=== PATIENT | male | born 1935 | race Caucasian/White ===

== ENCOUNTER 2023-07-09 10:23 | Inpatient (IN) | payer MEDICARE ==
[2023-07-09 11:20] LABS: #Monocytes 0.5 thou/uL (0.11-0.59); #Neutrophils 5.1 thou/uL (1.40-6.50); %Basophils 0.3 % (0.0-1.0); %Eosinophils 0.2 % (0.0-10.0); %Lymphocytes 9.8 % (21.0-51.0); %Monocytes 7.5 % (0.0-10.0); Hematocrit 42.4 % (42.0-52.0); Hemoglobin 14.5 g/dL (14.0-18.0); Mean Corpuscular HGB CONC 34.2 g/dL (32.0-36.0); Mean Corpuscular Hemoglobin 31.5 pg (27.0-31.0); Mean Platelet Volume 9.4 fL (7.4-10.4); Platelet Count 121 10x3/uL (130-400); RBC Distribution Width 12.8 % (11.5-14.5); Red Blood Cell (RBC) Count 4.61 mill/uL (4.70-6.10); White Blood Cell (WBC) Count 6.2 10x3/uL (4.8-10.8)
[2023-07-09 11:48] LABS: ALT (SGPT) 11 U/L (8-55); AST (SGOT) 23 U/L (5-34); Albumin 3.4 g/dL (3.4-4.8); Alkaline Phosphatase 40 U/L (40-110); Anion Gap 9 mmol/L (10-20); BUN (Urea Nitrogen) 17 mg/dL (8.4-25.7); Bilirubin, Total 1.5 mg/dL (0.2-1.2); Calc. Creatinine Clearance 0 mL/min (70-130); Calcium 8.3 mg/dL (7.8-10.44); Carbon Dioxide 21 mmol/L (23-31); Chloride 101 mmol/L (98-107); Estimated GFR 68; Globulin 2.8 g/dL (2.4-3.5); Glucose 103 mg/dL (83-110); Lipase 10 U/L (8-78); Potassium 3.8 mmol/L (3.5-5.1); Protein, Total 6.2 g/dL (5.8-8.1); Sodium 127 mmol/L (136-145)
[2023-07-09 11:50] LABS: Troponin I 0.024 ng/mL (< 0.028)
[2023-07-09 11:55] LABS: CellaVision Operator ID LAB.GE; Platelet Adequacy Comment Platelets Decreased; Polychromasia SLIGHT = 2-3 cells HPF (0-2)
[2023-07-09 12:30] LABS: Bacteria/HPF None Seen HPF (None Seen); Bilirubin Negative (Negative); Blood, Urine Negative (Negative); CAUTI Indications for Culture < 2yrs of age; Clarity Clear (Clear); Glucose, Urine (Dipstick) Normal (Negative); Ketone, Urine 20 mg/dL (Negative); Leukocyte Negative Leu/uL (Negative); Nitrite Negative (Negative); Protein, Urine (Dipstick) Negative (Neg-Trace); RBC/HPF 0-3 HPF (0-3); Specific Gravity, Urine 1.014 (1.002-1.036); Squamous Epithelial None Seen HPF (0-3); Urobilinogen Normal mg/dL (Less than 2); WBC/HPF 0-3 HPF (0-3); pH, Urine 5.5 (5.0-9.0)
[2023-07-09 12:35] LABS: Urine Culture Reflex Yes Yes
[2023-07-09 13:00] LABS: SARS-CoV-2 NAA Rapid Test Not Detected (NotDetected)
[2023-07-09] MEDS ORDERED: Ondansetron PF 4 MG/2 ML Vial IVP PRN (15:00)
[2023-07-09] MEDS ORDERED: Acetaminophen 325 MG TAB PO PRN (15:00)
[2023-07-09] MEDS ORDERED: Enoxaparin 40 MG (0.4 mL) SYRINGE SC SCH (15:15)
[2023-07-09 15:24] VITALS: BMI 17.6
[2023-07-09] MEDS ORDERED: Enoxaparin 40 MG (0.4 mL) SYRINGE ONE (15:36)
[2023-07-09 16:23] LABS: Free T4 (Free Thyroxine) 1.05 ng/dL (0.70-1.48); Thyroid Stimulating Hormone 2.0942 uIU/mL (0.35-4.94)
[2023-07-10 05:30] LABS: Anion Gap 14 mmol/L (10-20); BUN (Urea Nitrogen) 17 mg/dL (8.4-25.7); Calc. Creatinine Clearance 48 mL/min (70-130); Calcium 8.1 mg/dL (7.8-10.44); Carbon Dioxide 17 mmol/L (23-31); Chloride 104 mmol/L (98-107); Estimated GFR 81; Glucose 69 mg/dL (83-110); Potassium 3.8 mmol/L (3.5-5.1); Sodium 131 mmol/L (136-145)
[2023-07-10 09:04] LABS: Magnesium 1.8 mg/dL (1.6-2.6); Phosphorus 2.9 mg/dL (2.3-4.7)
[2023-07-10] MEDS: Sodium Bicarbonate Tab 325 MG TAB PO SCH ×3 (09:32→20:21)
[2023-07-10] MEDS: Enoxaparin 40 MG (0.4 mL) SYRINGE SC SCH (09:32)
[2023-07-10] MEDS: Midodrine HCl 5 MG TAB PO SCH ×3 (09:32→20:21)
[2023-07-10] MEDS: Sodium Chloride 0.9% 1,000 ML IV SCH ×2 (09:33→18:12)
[2023-07-10 17:24] LABS: Anion Gap 13 mmol/L (10-20); BUN (Urea Nitrogen) 16 mg/dL (8.4-25.7); Calc. Creatinine Clearance 55 mL/min (70-130); Calcium 7.9 mg/dL (7.8-10.44); Carbon Dioxide 17 mmol/L (23-31); Chloride 103 mmol/L (98-107); Estimated GFR 86; Glucose 84 mg/dL (83-110); Potassium 3.6 mmol/L (3.5-5.1); Sodium 129 mmol/L (136-145)
[2023-07-10] MEDS ORDERED: Sodium Chloride 1 GM TAB PO SCH (21:30)
[2023-07-11 07:28] LABS: Anion Gap 12 mmol/L (10-20); BUN (Urea Nitrogen) 11 mg/dL (8.4-25.7); Calc. Creatinine Clearance 60 mL/min (70-130); Calcium 7.9 mg/dL (7.8-10.44); Carbon Dioxide 20 mmol/L (23-31); Chloride 105 mmol/L (98-107); Estimated GFR 88; Glucose 92 mg/dL (83-110); Potassium 3.5 mmol/L (3.5-5.1); Sodium 133 mmol/L (136-145)
[2023-07-11] MEDS ORDERED: Cosyntropin 250 MCG VIAL SLOW IVP SCH (08:15)
[2023-07-11] MEDS ORDERED: Potassium Chloride 20 MEQ TAB PO SCH (08:15)
[2023-07-11 09:02] LABS: Magnesium 1.7 mg/dL (1.6-2.6)
[2023-07-11] MEDS: Sodium Bicarbonate Tab 325 MG TAB PO SCH ×3 (09:27→19:48)
[2023-07-11] MEDS: Midodrine HCl 5 MG TAB PO SCH ×3 (09:27→19:48)
[2023-07-11] MEDS: Enoxaparin 40 MG (0.4 mL) SYRINGE SC SCH (09:27)
[2023-07-11] MEDS: Sodium Chloride 1 GM TAB PO SCH ×3 (09:28→19:48)
[2023-07-11] MEDS ORDERED: Dexamethasone 4 mg/ml Vial SLOW IVP SCH (14:45)
[2023-07-12 05:09] LABS: #Monocytes 0.2 thou/uL (0.11-0.59); #Neutrophils 3.9 thou/uL (1.40-6.50); %Basophils 0.2 % (0.0-1.0); %Lymphocytes 10.8 % (21.0-51.0); %Monocytes 3.3 % (0.0-10.0); %Neutrophils 85.3 % (42.0-75.0); Hematocrit 40.9 % (42.0-52.0); Hemoglobin 14.3 g/dL (14.0-18.0); Mean Corpuscular Hemoglobin 30.8 pg (27.0-31.0); Mean Corpuscular Volume 88.1 fl (78.0-98.0); Platelet Count 134 10x3/uL (130-400); RBC Distribution Width 12.6 % (11.5-14.5); Red Blood Cell (RBC) Count 4.64 mill/uL (4.70-6.10); White Blood Cell (WBC) Count 4.6 10x3/uL (4.8-10.8)
[2023-07-12 05:29] LABS: Anion Gap 13 mmol/L (10-20); BUN (Urea Nitrogen) 11 mg/dL (8.4-25.7); Calc. Creatinine Clearance 58 mL/min (70-130); Calcium 8.6 mg/dL (7.8-10.44); Carbon Dioxide 22 mmol/L (23-31); Chloride 104 mmol/L (98-107); Estimated GFR 88; Glucose 135 mg/dL (83-110); Potassium 3.9 mmol/L (3.5-5.1); Sodium 135 mmol/L (136-145)
[2023-07-12] MEDS ORDERED: Cosyntropin 250 MCG VIAL SLOW IVP SCH (08:00)
[2023-07-12] MEDS: Enoxaparin 40 MG (0.4 mL) SYRINGE SC SCH (08:21)
[2023-07-12] MEDS: Midodrine HCl 5 MG TAB PO SCH ×2 (08:21→15:05)
[2023-07-12] MEDS: Sodium Chloride 1 GM TAB PO SCH ×2 (08:22→15:05)
[2023-07-12] MEDS: Sodium Bicarbonate Tab 325 MG TAB PO SCH ×2 (08:22→15:05)
[2023-07-12] MEDS ORDERED: Levothyroxine Sodium 50 MCG TAB PO SCH (09:00)
[2023-07-12] MEDS ORDERED: Hydrocortisone Sod Succ/PF 100 mg/2 ml Vial IVP SCH ×2 (14:00)
[2023-07-12 16:50] VITALS: BP 127/71; TEMP 97.3
[2023-07-13] MEDS ORDERED: Hydrocortisone 10 mg Tablet PO SCH (18:00)
[2023-07-15] MEDS ORDERED: Hydrocortisone 10 mg Tablet PO SCH (09:00)
== END 2023-07-12 17:00 | disposition home or self-care (01) | DRG 644 ==
LOC: ERS 10:23 → ERHOLD 15:02 → 2SW 19:54 → UNDODISOB 07-10 15:35 → OBSVTOIN 07-11 14:48
PROVIDERS: ADMIT Internal Medicine; ATTEND Hospitalist
DX: E27.1 Primary adrenocortical insufficiency (principal); E22.2 Syndrome of inappropriate secretion of antidiuretic hormone; E87.20 Acidosis, unspecified; Z68.1 Body mass index [BMI] 19.9 or less, adult; I95.1 Orthostatic hypotension; E86.9 Volume depletion, unspecified; E03.9 Hypothyroidism, unspecified; I48.91 Unspecified atrial fibrillation; I10 Essential (primary) hypertension; E86.0 Dehydration; I95.9 Hypotension, unspecified; R63.4 Abnormal weight loss; Z95.5 Presence of coronary angioplasty implant and graft; Z95.0 Presence of cardiac pacemaker; Z98.890 Other specified postprocedural states; Z88.5 Allergy status to narcotic agent; Z11.52 Encounter for screening for COVID-19
CPT/HCPCS: 36415; 71045; 80048; 80053; 80400; 81001; 82533; 82550; 83605; 83690; 83735; 83930; 83935; 84100; 84300; 84439; 84443; 84481; 84484; 85025; 87086; 93005; 93306; 96360; 96372; G0378; J0834; J1100; J1650; J1720; J7050